=== PATIENT | male | born 1975 | race Caucasian/White ===

== ENCOUNTER 2020-05-07 20:50 | Emergency (ER) | payer BC, SELFPAY ==
[2020-05-07 20:50] VITALS: BP 138/97; PULSE 92; RESP 16; TEMP 36.6; O2SAT 98; BMI 27.4
--- NOTE | 2020-05-07 21:29 | ED.VIS.GEN ---
History of Present Illness Chief Complaint: Foreign Body Informant: Patient, Family Narrative: Patient presents to the emergency department stating that he has a pork chop stuck in his throat. Reportedly was just in [place] where he had a piece of meat stuck in his esophagus he went to a local emergency room. He states they tried coke as well as glucagon which did not work. He reports that he left because he wanted to go to work the next day but it did not resolve and eventually found himself at [facility] where he went into atrial fibrillation and there is reportedly a microperforation of his esophagus and he was transferred to [facility]. He reportedly stayed several days and was discharged home. Today he had several beers out on his patio and then grilled pork chops. He is unable to swallow since that time. He states that he took a Klonopin prior to arrival because he gets severely anxious. He is unsure if he should come to this hospital where he is never been or back to [facility] so they came here. Past Medical History - Allergies and Home Meds Allergies/Adverse Reactions: Allergies No Known Allergies Allergy (Unverified 08/23/18 07:13) Primary Care Physician: [facility] Doctor,Out of [NON-STAFF] - Review of Systems General: Denies: Chills, Fever, Sweats Eyes: Denies: Visual changes - bilaterally, Diplopia ENT: Denies: Rhinorrhea, Sore throat Cardiovascular: Reports: Chest pain. Denies: Palpitations Respiratory: Denies: Dyspnea, Cough, Dyspnea on exertion Gastrointestinal: Denies: Abdominal pain, Nausea, Vomiting, Diarrhea, Melena, Hematochezia Genitourinary: Denies: Dysuria, Hematuria, Frequency Musculoskeletal: Denies: Back pain, Extremity Pain Skin: Denies: Rash, Wounds Neurological: Denies: Headache, Weakness, Numbness Physical Exam Vital Signs/Narrative: Vital Signs Temp Pulse Resp BP Pulse Ox 05/07/20 20:50 97.8 F 92 16 138/97 H 98 Inital Vital Signs reviewed: Yes General: Well nourished, Well developed, No Acute Distress Head: Normocephalic, Atraumatic Eyes: Perrl, EOMI ENT: Moist mucous membranes, No rhinorrhea, - - Patient is spitting his secretions Neck: Supple, Nontender Cardiovascular: Regular rate, Regular rhythm, No murmurs Respiratory: No distress, CTA bilaterally, Chest nontender Abdomen: Soft, Nontender, Nondistended, Normal bowel sounds Back: Nontender, Normal Inspection Extremities: Nontender, No edema Skin: Normal color, No rash Neurological: Alert, Oriented x3, Cranial nerves II-XII grossly intact, Normal Strength, Normal Sensation Psychological: Normal affect, Normal Mood Diagnostic/Tx/Re-eval - Medical Decision Making I called [facility] and they put me in touch with on-call gastroenterology Dr. Renee was accepted the patient to the emergency room. Patient would like to go by private vehicle and his sister is driving. ED Disposition - Plan for ED Patient: Disposition: [facility] Diagnosis: Food impaction of esophagus Additional Instructions: Go directly to [facility] emergency room. Do not stop to eat or drink anything. Do not take any medications.
== END 2020-05-07 21:40 | disposition short-term general hospital (02) ==
PROVIDERS: Emergency Provider Emergency Medicine; PCP Family Medicine
DX: T18.128A Food in esophagus causing other injury, initial encounter (principal)
CPT/HCPCS: 99283

== ENCOUNTER 2023-10-12 13:35 | Emergency (ER) | payer BC, SELFPAY ==
[2023-10-12 13:36] VITALS: BP 141/101; PULSE 95; RESP 18; TEMP 37; O2SAT 99; BMI 18.7
[2023-10-12] MEDS: Diphth,Pertuss(Acell),Tet Vac 0.5 ML Vial IM (15:33)
--- NOTE | 2023-10-12 15:43 | EDS_ITS ---
HPI History of Present Illness Chief Complaint: Foreign Body Informant: patient Narrative Narrative: Patient is a 48-year-old male [id number] presenting with fishhook lodged in his right hand. He states he was putting some rope away Tetanus Immunization: Unknown [facility] Home Medications NK 08/23/18 [History Last Taken Unknown] Allergy/AdvReac Type Severity Reaction Status Date / Time No Known Allergies Allergy Verified 10/12/23 13:36 Surgical History Broken neck Social History (Updated 09/03/20 @ 10:49 by Jose Luis ALANIZ, PA) Smoking Status: Current some day smoker tobacco type: smokeless tobacco Smokeless tobacco user: chewing tobacco alcohol intake: never EXAM Physical Exam Const Vital Signs: 10/12/23 13:36 Temperature 98.6 F Temperature Source Temporal Pulse Rate 95 Respiratory Rate 18 Blood Pressure 141/101 H Blood Pressure Mean 114 Pulse Ox 99 Oxygen Delivery Method Room Air Discharge Plan Triage Chief Complaint: Foreign Body ED Provider: Treva Khalil Dx/Rx/DC Orders Prescriptions: No Action NK Primary Care Provider: James Larson Referrals: James Larson MD [Primary Care Provider] -
--- NOTE | 2023-10-12 15:43 | EX.ED.UPPERE ---
HPI History of Present Illness Chief Complaint: Foreign Body Informant: patient Narrative Narrative: Patient is a 48-year-old male [id number] presenting with fishhook lodged in his right hand. He states he was putting some rope away and hook/alert was stuck in it. It became lodged in the webbing of the skin in between his thumb and index finger. He was unable to get it out. Initially went to urgent care but he was told he might need x-rays and sent to the ER. He is not sure what his last tetanus was. No other complaints at this time. Not any blood thinners. Thinks he has used the hook in the past for fishing but was not using it today. Tetanus Immunization: Unknown PFSH PFSH Home Medications NK 08/23/18 [History Last Taken Unknown] cephalexin 500 mg capsule 500 mg PO Q8H 3 days #9 caps 10/12/23 [Rx Last Taken Unknown] Allergy/AdvReac Type Severity Reaction Status Date / Time No Known Allergies Allergy Verified 10/12/23 13:36 Surgical History Broken neck Social History Smoking Status: Current some day smoker tobacco type: smokeless tobacco Smokeless tobacco user: chewing tobacco alcohol intake: never ROS ROS ED Constitutional Constitutional ED: Denies chills or fever(s) Musculoskeletal Musculoskeletal: Denies back pain or myalgias Integumentary Reports other Details: Foreign body in right hand Neurologic Neurologic: Denies paresthesias or weakness Hematologic/Lymphatic Hematologic/Lymphatic: Denies easy bleeding or easy bruising EXAM Physical Exam Const Vital Signs: 10/12/23 13:36 Temperature 98.6 F Temperature Source Temporal Pulse Rate 95 Respiratory Rate 18 Blood Pressure 141/101 H Blood Pressure Mean 114 Pulse Ox 99 Oxygen Delivery Method Room Air Positive well nourished and well developed General Appearance ED: well developed and NAD HEENT normocephalic and atraumatic Neck supple Resp normal respiratory effort Cardio regular rate and regular rhythm Extremity normal to inspection and full ROM Neuro oriented x3, no focal motor deficits and no sensory deficits noted Sensorium / Orientation: alert Skin Skin Narrative: Patient has the georgi of 1 side of fishing lure lodged in the webbing space in between the right first and second fingers. There is a second attached hook that is not in the skin. MDM MDM MDM Narrative Medical decision making narrative: Patient is evaluated for foreign body to his right hand. 0.5 cc of 2% lidocaine without epinephrine used locally anesthetize the area and the a hook is removed using traction and the bevel of an 18-gauge needle over the georgi itself. Patient tolerated procedure well. Is then irrigated with normal saline. Bacitracin and occlusive dressing applied by myself. Tetanus is updated. Because the hook has been used before I will be placed on 3-day course of empiric antibiotics to prevent associated soft tissue infection. Patient verbalized agreement understand this plan. Discharged home in stable condition. Given return precautions. I do not think an x-ray of the hand is indicated as it is clearly in the soft tissue and I am not concerned for any bony involvement. Discharge Plan Triage Chief Complaint: Foreign Body ED Provider: Treva Khalil Dx/Rx/DC Orders Clinical Impression: Need for [id number] (Tdap) vaccine, Fishing hook foreign body Instructions: ED Foreign Body Soft Tissue Prescriptions: New cephalexin 500 mg capsule 500 mg PO Q8H 3 Days Qty: 9 0RF No Action NK Primary Care Provider: James Larson Referrals: James Larson MD [Primary Care Provider] - Activity Restrictions/Additional Instructions: Return with any signs of infection. Alternate ibuprofen and Tylenol as needed for discomfort. You can ice the area if you feel acute swelling over the first 24 hours. Disposition Disposition: Home, Self Care
== END 2023-10-12 16:11 | disposition home or self-care (01) ==
PROVIDERS: Emergency Provider Emergency Medicine; PCP Family Medicine; Visit Provider Emergency Medicine
DX: L92.3 Foreign body granuloma of the skin and subcutaneous tissue (principal); Z23 Encounter for immunization; Z18.89 Other specified retained foreign body fragments; F17.220 Nicotine dependence, chewing tobacco, uncomplicated
CPT/HCPCS: 90471; 90715; 99283

== ENCOUNTER → 2025-11-16 | Outpatient (CLI) | payer BC, SELFPAY ==
[2025-11-16 16:54] LABS: Hematocrit 49.7 % (40-54); Hemoglobin 16.0 g/dL (13.0-16.5); Immature Granulocytes Count 0.030 X10^3/uL (0.0-0.0); Mean Corp Hgb Conc 32.2 g/dL (32-36); Mean Corpuscular Volume 90.4 fL (80-94); Mean Platelet Vol. 11.1 fl (6.2-12.0); NRBC Flagged by Analyzer 0 % (0-5); Platelet Count 277 K/mm3 (150-450); RBC Distribution Width CV 13.4 % (11.6-14.6); RBC Distribution Width SD 44.7 fl (35.1-43.9); Red Blood Count 5.50 M/mm3 (4.6-6.2); White Blood Count 8.4 K/mm3 (4.4-11.0)
[2025-11-16 17:39] LABS: AST(SGOT) 49 U/L (<=37); Alanine Aminotransfer ALT/SGPT 90 U/L (<=46); Albumin, Serum 4.2 g/dL (3.5-5.0); Alkaline Phosphatase 84 U/L (40-129); Anion Gap 10 (7-18); BUN 13 mg/dL (4-19); BUN/Creat Ratio 13.3 RATIO (10-20); Calcium,Total 9.8 mg/dL (7.6-11.0); Carbon Dioxide 25.2 mmol/L (20.0-29.0); Chloride 104 mmol/L (96-106); Cholesterol 201 mg/dL (<=200); Globulin 2.8 g/dL (2.2-4.2); Glucose 98 mg/dL (70-99); Low Density Lipoprotein Calc. 108 mg/dL; Potassium 4.4 mmol/L (3.5-5.1); Triglycerides 261 mg/dL; Very Low Density Lipoprotein 52 mg/dL (5-40); Vitamin B12 719 pg/mL (180-914); Vitamin D,25 Hydroxy 29.5 ng/mL (30-100); cholesterol:hdl ratio screen 4.14
== END | disposition home or self-care (01) ==
LOC: VSLAB 12:06
PROVIDERS: PCP Family Medicine
DX: Z00.00 Encounter for general adult medical examination without abnormal findings (principal)
CPT/HCPCS: 36415; 80053; 80061; 82306; 82607; 84443; 85025